=== PATIENT | female | born 1955 | race Caucasian/White ===

== ENCOUNTER 2017-04-28 09:03 | Emergency (ER) | payer OTHER ==
[~2017-04-28] VITALS: Ht 157.5 cm; Wt 68.0 kg
[2017-04-28 09:13] VITALS: BP 126/81
--- NOTE | 2017-04-28 09:20 | NUR ---
PT FELL LEFT WRIST PAIN8/10 ICE TO SITE AWAITING EVALUATION BY ER PROVIDER.
== END 2017-04-28 09:47 | disposition home or self-care (01) ==
LOC: ER 09:05
DX: S63.502A Unspecified sprain of left wrist, initial encounter (principal); W01.0XXA Fall on same level from slipping, tripping and stumbling without subsequent striking against object, initial encounter; Y93.89 Activity, other specified; Y92.89 Other specified places as the place of occurrence of the external cause; Y99.9 Unspecified external cause status
CPT/HCPCS: 73110; A4606; Z7610